=== PATIENT | male | born 1995 | race African-American/Black ===

== ENCOUNTER 2025-02-08 16:13 | Observation (INO) | payer OTHER ==
[2025-02-08 16:55] LABS: Hemoglobin 13.7 g/dL (13.5-17.5); Red Blood Cell (RBC) Count 4.55 10x6/uL (4.32-5.72); White Blood Cell (WBC) Count 10.38 10x3/uL (3.5-10.5)
[2025-02-08 16:56] LABS: #Basophils 0.10 10x3/uL (0.0-0.2); #Eosinophils 0.83 10x3/uL (0.0-0.5); #Monocytes 0.91 10x3/uL (0.0-1.1); #Neutrophils 4.14 10x3/uL (1.5-8.4); %Basophils 1.0 % (0.0-2.0); %Eosinophils 8.0 % (0.0-6.0); %Lymphocytes 41.8 % (18.0-47.0); %Monocytes 8.8 % (0.0-10.0); %Neutrophils 39.8 % (40.0-75.0); Hematocrit 40.4 % (38.8-50.0); Mean Corpuscular Hemoglobin 30.1 pg (27.0-33.0); Mean Corpuscular Volume 88.8 fL (81.2-95.1); Platelet Count 286 10x3/uL (150-450)
[2025-02-08] MEDS ORDERED: diphenhydrAMINE 50 MG/ML VIAL ONE (16:56)
[2025-02-08] MEDS ORDERED: Metoclopramide HCl 10 MG (2 mL) VIAL ONE (16:57)
[2025-02-08 17:21] LABS: INR-International Normal Ratio 1.0; PTT 26.8 sec (22.0-33.0); Prothrombin Time 10.8 sec (9.5-12.1)
[2025-02-08 17:23] LABS: ALT (SGPT) 47 U/L (Less than 45); AST (SGOT) 28 U/L (11-34); Albumin 4.2 g/dL (3.1-4.5); Alkaline Phosphatase 58 U/L (40-110); Anion Gap 9 mmol/L (10-20); BUN (Urea Nitrogen) 8 mg/dL (8.9-20.6); Bilirubin, Total 0.3 mg/dL (0.3-1.2); Calc. Creatinine Clearance 0 mL/min (70-130); Calcium 9.7 mg/dL (7.8-10.44); Carbon Dioxide 30 mmol/L (22-29); Chloride 105 mmol/L (98-107); Globulin 3.2 g/dL (2.4-3.5); Glucose 89 mg/dL (70-105); Potassium 4.0 mmol/L (3.5-5.1); Sodium 140 mmol/L (136-145)
[2025-02-08 17:30] LABS: Troponin I Less than 0.010 ng/mL (< 0.028)
[2025-02-08] MEDS ORDERED: Acetaminophen 325 MG TAB PO PRN (19:33)
[2025-02-08] MEDS ORDERED: Ondansetron PF 4 MG/2 ML Vial IVP PRN (19:33)
[2025-02-08] MEDS ORDERED: Calcium Carbonate 500 MG ChewTAB PO PRN (19:33)
[2025-02-08] MEDS ORDERED: Senokot S 8.6-50 MG TAB PO PRN (19:33)
[2025-02-08 19:52] VITALS: BMI 28.0
[2025-02-08] MEDS: Ketorolac Tromethamine 30 MG (1 mL) VIAL IVP SCH (20:59)
[2025-02-08] MEDS: Prochlorperazine Edisylate 10 MG, Admixture Fee 1 EACH in Sodium Chloride 0.9% 50 ML IVPB SCH (21:02)
[2025-02-08] MEDS: Pantoprazole 40 MG VIAL IVP SCH (21:02)
[2025-02-08 23:34] LABS: Cocaine Metabolite Screen Negative (Negative); THC/Cannabinoid Screen PRELIM POSITIVE (Negative); Tricyclic Screen Negative (Negative)
[2025-02-09] MEDS: diphenhydrAMINE 50 MG/ML VIAL IVP SCH (02:12)
[2025-02-09 05:26] LABS: Anion Gap 12 mmol/L (10-20); BUN (Urea Nitrogen) 10 mg/dL (8.9-20.6); Calc. Creatinine Clearance 169 mL/min (70-130); Calcium 10.0 mg/dL (7.8-10.44); Carbon Dioxide 24 mmol/L (22-29); Chloride 105 mmol/L (98-107); Glucose 135 mg/dL (70-105); Potassium 4.3 mmol/L (3.5-5.1); Sodium 137 mmol/L (136-145)
[2025-02-09 05:52] LABS: Cardiac Risk 3.7 (Less than 4.5); Cholesterol 161 mg/dl (< 200 Desired); HDL Cholesterol 44 mg/dL (>60 Neg Risk); LDL Cholesterol, Calculated 111 mg/dL; Triglycerides 32 mg/dL (Less than 150)
[2025-02-09 08:00] VITALS: BP 151/89; TEMP 97.8
[2025-02-09] MEDS: lamoTRIgine 25 MG TAB PO SCH (10:15)
== END 2025-02-09 13:34 | disposition home or self-care (01) ==
LOC: CSHERS 16:13 → CSHTELE 18:48
PROVIDERS: ADMIT Internal Medicine; ATTEND Internal Medicine
DX: G93.5 Compression of brain (principal); G43.919 Migraine, unspecified, intractable, without status migrainosus; F31.9 Bipolar disorder, unspecified; F17.210 Nicotine dependence, cigarettes, uncomplicated; Z90.89 Acquired absence of other organs; Z79.1 Long term (current) use of non-steroidal anti-inflammatories (NSAID); Z79.899 Other long term (current) drug therapy
CPT/HCPCS: 36415; 36416; 70450; 70553; 71045; 72141; 72146; 72148; 76376; 80048; 80053; 80061; 80306; 84484; 85025; 85610; 85730; 86140; 93005; 94760; 96365; 96375; 96376; G0378; J0780; J1100; J1200; J1885; J2060; J2470; J2765